=== PATIENT | male | born 1930 | race Caucasian/White ===

== ENCOUNTER 2017-08-16 09:53 | Emergency (ER) | payer MEDICARE ==
[~2017-08-16] VITALS: Ht 182.9 cm; Wt 86.2 kg
[2017-08-16 09:58] VITALS: BP_SYST 107
[2017-08-16] MEDS ORDERED: MORPHINE 4 MG/ML INJ. SYRINGE IVP ONE ×2 (10:00→17:00)
[2017-08-16] MEDS ORDERED: NACL 0.9% 1,000 ML IV ONE ×2 (10:15→13:45)
[2017-08-16 10:24] LABS: BASOPHILS % (AUTO) 0.3 % (0.0-2.0); HEMATOCRIT 23.5 % (36-54); HEMOGLOBIN 7.9 g/dL (14.0-18.0); LYMPHOCYTES # (AUTO) 0.9 K/uL (1.0-5.5); LYMPHOCYTES % (AUTO) 7.6 % (20.5-51.5); MEAN CORPUSCULAR HEMOGLOBIN 31 pg (27-31); MEAN CORPUSCULAR HGB CONC 33 % (32-36); MEAN CORPUSCULAR VOLUME 91 fL (79.0-98.0); MONOCYTES # (AUTO) 0.9 K/uL (0.0-1.0); MONOCYTES % (AUTO) 7.3 % (1.7-9.3); NEUTROPHILS # (AUTO) 10.5 K/uL (1.8-7.7); PLATELET COUNT (AUTO) 274 K/uL (130-430); RED BLOOD CELL COUNT(AUTO) 2.58 MIL/uL (4.2-6.2); RED CELL DISTRIBUTION WIDTH 16.5 % (9.0-15.0); WHITE BLOOD COUNT (AUTO) 12.3 K/uL (4.8-10.8)
[2017-08-16 10:27] LABS: ANION GAP 8 (5-15); CALCIUM 8.4 mg/dL (8.4-11.0); CHLORIDE 107 mmol/L (98-107); CREATININE 1.12 mg/dL (0.55-1.30); GLUCOSE 147 mg/dL (70-99); POTASSIUM 4.4 mmol/L (3.5-5.1); SODIUM SERUM 138 mmol/L (136-145); UREA NITROGEN, BLOOD 26 mg/dL (8-21)
[2017-08-16 10:31] LABS: INR 1.2 (0.80-1.20)
[2017-08-16 10:32] LABS: ALANINE AMINOTRANSFERASE 27 U/L (12-78); ALBUMIN 2.8 g/dL (3.4-4.8); ASPARTATE AMINOTRANSFERASE 38 U/L (10-37); TOTAL BILIRUBIN 2.4 mg/dL (0.0-1.0)
[2017-08-16 10:47] LABS: NEUTROPHILS % (AUTO) 84.8 % (40.0-70.0)
[2017-08-16 10:54] LABS: BILIRUBIN,URINE 1+ (NEGATIVE); BLOOD, URINE NEGATIVE (NEGATIVE); CLARITY/URINE CLEAR (CLEAR); COLOR,URINE AMBER (YELLOW); GLUCOSE,URINE NEGATIVE (NEGATIVE); KETONES,URINE NEGATIVE (NEGATIVE); LEUKOCYTE ESTERASE ,URINE TRACE (NEGATIVE); NITRITE, URINE NEGATIVE (NEGATIVE); PH,URINE 5.5 (5.0-8.0); PROTEIN URINE TRACE (NEGATIVE)
[2017-08-16] MEDS ORDERED: DILTIAZEM HCL 25 MG/5 ML VIAL IVP ONE (11:00)
[2017-08-16 11:12] LABS: BACTERIA,URINE FEW /HPF (None Seen); MUCUS,URINE 1+ /LPF (None Seen); RBC,URINE 0-3 /HPF (0-3)
[2017-08-16] MEDS ORDERED: cefTRIAXone 1 GM IVPB PREMIX 50 ML IV ONE (11:45)
[2017-08-16] MEDS ORDERED: DILTIAZEM HCL 125 MG in D5W 100 ML IV ONE (13:00)
[2017-08-16] MEDS ORDERED: DILTIAZEM HCL 125 MG/25 ML VIAL IV ONE (13:42)
[2017-08-16] MEDS ORDERED: MORPHINE 4 MG/ML INJ. SYRINGE ONE (16:57)
[2017-08-16 17:04] VITALS: BP_SYST 126
== END 2017-08-16 09:57 | disposition short-term general hospital (02) ==
LOC: SED 09:53
DX: I48.91 Unspecified atrial fibrillation (principal); D64.9 Anemia, unspecified; N39.0 Urinary tract infection, site not specified; F03.90 Unspecified dementia, unspecified severity, without behavioral disturbance, psychotic disturbance, mood disturbance, and anxiety
CPT/HCPCS: 36415; 71045; 80053; 81000; 82272; 82550; 83605; 83880; 84484; 85025; 85610; 85730; 86886; 86900; 86901; 86920; 87040; 87086; 93005; 96361; 96365; 96366; 96367; 96375; 96376; 99285; J0696; J2270; J3490 ×2; J7030; P9021; J7060

== ENCOUNTER 2020-05-23 12:27 | Emergency (ER) | payer MEDICARE, SELFPAY ==
[~2020-05-23] VITALS: Ht 170.2 cm; Wt 77.1 kg
[~2020-05-23 12:27] MED LIST: ACET167L15 PO; ACET325T53 PO; DILT120C89 PO; DONE10TA44 PO; FURO-149 PO; GUAI-689 PO; LACT10PA5 PO; LEVO500T89 PO; LISI10TA5 PO; LORA-258 PO; MELA10TA PO; MICO15CR4 TP; OXYC-128 PO; POLY17PO4 PO; POTA10TA PO; QUET50TA PO; SENN8.6T19 PO; SER25 PO; TAMS-11 PO; [UNRECOGNIZED DRUG - CODE]
[2020-05-23 12:31] VITALS: BP_SYST 111
[2020-05-23] MEDS ORDERED: NACL 0.9% 1,000 ML IV ONE (13:00)
[2020-05-23 13:09] LABS: BASOPHILS # (AUTO) 0.1 K/uL (0.0-0.2); BASOPHILS % (AUTO) 1.3 % (0.0-2.0); EOSINOPHILS # (AUTO) 0.1 K/uL (0.0-0.4); EOSINOPHILS % (AUTO) 0.9 % (0.0-4.0); HEMATOCRIT 22.9 % (36-54); HEMOGLOBIN 8.1 g/dL (14.0-18.0); LYMPHOCYTES # (AUTO) 1.4 K/uL (1.0-5.5); MEAN CORPUSCULAR HEMOGLOBIN 32 pg (27-31); MEAN CORPUSCULAR HGB CONC 35 % (32-36); MEAN CORPUSCULAR VOLUME 90 fL (79.0-98.0); MONOCYTES # (AUTO) 0.6 K/uL (0.0-1.0); MONOCYTES % (AUTO) 8.9 % (1.7-9.3); NEUTROPHILS # (AUTO) 4.6 K/uL (1.8-7.7); NEUTROPHILS % (AUTO) 67.9 % (40.0-70.0); PLATELET COUNT (AUTO) 141 K/uL (130-430); RED BLOOD CELL COUNT(AUTO) 2.54 MIL/uL (4.2-6.2); WHITE BLOOD COUNT (AUTO) 6.8 K/uL (4.8-10.8)
[2020-05-23 13:28] LABS: INR 1.1 (0.80-1.20); PROTHROMBIN TIME 11.7 SECS (9.5-12.5)
[2020-05-23 13:38] LABS: ALANINE AMINOTRANSFERASE 28 U/L (12-78); ALBUMIN 2.3 g/dL (3.4-4.8); ANION GAP 10 (5-15); ASPARTATE AMINOTRANSFERASE 50 U/L (10-37); CALCIUM 7.3 mg/dL (8.4-11.0); CHLORIDE 107 mmol/L (98-107); CREATININE 1.65 mg/dL (0.55-1.30); GLUCOSE 96 mg/dL (70-99); POTASSIUM 3.4 mmol/L (3.5-5.1); SODIUM SERUM 139 mmol/L (136-145); TOTAL BILIRUBIN 0.7 mg/dL (0.0-1.0); UREA NITROGEN, BLOOD 30 mg/dL (8-21)
[2020-05-23 15:50] LABS: BILIRUBIN,URINE 1+ (NEGATIVE); BLOOD, URINE 3+ (NEGATIVE); CLARITY/URINE CLOUDY (CLEAR); GLUCOSE,URINE NEGATIVE (NEGATIVE); KETONES,URINE NEGATIVE (NEGATIVE); LEUKOCYTE ESTERASE ,URINE TRACE (NEGATIVE); NITRITE, URINE NEGATIVE (NEGATIVE); PH,URINE 5.5 (5.0-8.0); PROTEIN URINE 2+ (NEGATIVE); UROBILINOGEN,URINE 0.2 (0.2-1.0)
[2020-05-23 15:59] VITALS: BP_SYST 124
[2020-05-23 16:00] LABS: COLOR,URINE AMBER (YELLOW)
[2020-05-23 16:06] LABS: BACTERIA,URINE MODERATE /HPF (None Seen); RBC,URINE >100 /HPF (0-3); WBC,URINE 50-80 /HPF (0-3)
[2020-05-23 16:07] LABS: MUCUS,URINE None Seen /LPF (None Seen); URINE AMORPHOUS URATE 2+ /HPF (None Seen)
== END 2020-05-23 16:55 | disposition home or self-care (01) ==
LOC: SED 12:27
DX: R31.9 Hematuria, unspecified (principal); I48.91 Unspecified atrial fibrillation; Z79.899 Other long term (current) drug therapy
CPT/HCPCS: 36415; 71045; 80053; 81000; 83605; 84484; 85025; 85610; 85730; 87040; 87086; 93005; 96360; 99285; J7030

== ENCOUNTER 2021-06-02 01:50 | Inpatient (IN) | payer MEDICARE, SELFPAY ==
[2021-06-02] VITALS (26 sets, daily range): BP systolic 83–128
[~2021-06-02] VITALS: Ht 170.2 cm; Wt 77.1 kg
[~2021-06-02 01:50] MED LIST changes: -LEVO500T89 PO; +LEVO500T90 PO; +LISI10TA29 PO; -LISI10TA5 PO; +MICO14CR6 TP; -MICO15CR4 TP
[2021-06-02 02:45] LABS: BASOPHILS % (AUTO) 0.3 % (0.0-2.0); EOSINOPHILS # (AUTO) 0.1 K/uL (0.0-0.4); EOSINOPHILS % (AUTO) 0.4 % (0.0-4.0); HEMATOCRIT 41.7 % (36-54); HEMOGLOBIN 13.5 g/dL (14.0-18.0); LYMPHOCYTES # (AUTO) 1.6 K/uL (1.0-5.5); LYMPHOCYTES % (AUTO) 11.9 % (20.5-51.5); MEAN CORPUSCULAR HEMOGLOBIN 28 pg (27-31); MEAN CORPUSCULAR HGB CONC 32 % (32-36); MEAN CORPUSCULAR VOLUME 87 fL (79.0-98.0); MONOCYTES # (AUTO) 0.7 K/uL (0.0-1.0); MONOCYTES % (AUTO) 5.3 % (1.7-9.3); NEUTROPHILS # (AUTO) 11.3 K/uL (1.8-7.7); NEUTROPHILS % (AUTO) 82.1 % (40.0-70.0); PLATELET COUNT (AUTO) 164 K/uL (130-430); RED BLOOD CELL COUNT(AUTO) 4.81 MIL/uL (4.2-6.2); RED CELL DISTRIBUTION WIDTH 22.3 % (9.0-15.0); WHITE BLOOD COUNT (AUTO) 13.8 K/uL (4.8-10.8)
[2021-06-02 02:46] LABS: ANION GAP 17 (5-15); CALCIUM 8.8 mg/dL (8.4-11.0); CREATININE 5.79 mg/dL (0.55-1.30); GLUCOSE 139 mg/dL (70-99); SODIUM SERUM 154 mmol/L (136-145)
[2021-06-02 02:52] LABS: ALANINE AMINOTRANSFERASE 39 U/L (12-78); ASPARTATE AMINOTRANSFERASE 57 U/L (10-37); TOTAL BILIRUBIN 0.9 mg/dL (0.0-1.0)
[2021-06-02 02:55] LABS: POTASSIUM 5.8 mmol/L (3.5-5.1); UREA NITROGEN, BLOOD 158 mg/dL (8-21)
[2021-06-02 02:56] LABS: CHLORIDE 121 mmol/L (98-107)
[2021-06-02 03:44] LABS: BILIRUBIN,URINE NEGATIVE (NEGATIVE); BLOOD, URINE 3+ (NEGATIVE); CLARITY/URINE SL CLOUDY (CLEAR); COLOR,URINE RED (YELLOW); GLUCOSE,URINE TRACE (NEGATIVE); KETONES,URINE NEGATIVE (NEGATIVE); LEUKOCYTE ESTERASE ,URINE 2+ (NEGATIVE); NITRITE, URINE NEGATIVE (NEGATIVE); PROTEIN URINE 1+ (NEGATIVE); UROBILINOGEN,URINE 0.2 (0.2-1.0)
[2021-06-02] MEDS ORDERED: PIPERACILLIN/TAZO 3.375 GM in NS 50 ML IV ONE (03:45)
[2021-06-02] MEDS ORDERED: VANCOMYCIN HCL 1,000 MG in NS 250 ML IV ONE (03:45)
[2021-06-02] MEDS ORDERED: NOREPINEPHRINE BITARTRATE 4 MG in NS 246 ML IV ONE (03:45)
[2021-06-02] MEDS ORDERED: VANCOMYCIN HCL 1000 MG/VIAL IV ONE (03:47)
[2021-06-02] MEDS ORDERED: PIPERACILLIN/TAZOBACTAM 3.375 GM/VIAL (ZOSYN) IV ONE (03:50)
[2021-06-02] MEDS ORDERED: NOREPINEPHRINE 4 MG/4 ML VIAL IV ONE (03:51)
[2021-06-02 04:00] LABS: BACTERIA,URINE MODERATE /HPF (None Seen); FINE GRANULAR CASTS,URINE 0-10 /LPF (None Seen); RBC,URINE >100 /HPF (0-3); WBC,URINE 20-50 /HPF (0-3)
[2021-06-02 04:01] LABS: MUCUS,URINE None Seen /LPF (None Seen)
[2021-06-02] MEDS ORDERED: NACL 0.9% 1,000 ML IV ONE (05:30)
[2021-06-02] MEDS ORDERED: DONE10TA44 PO (06:11)
[2021-06-02] MEDS ORDERED: TRAM50TA PO (06:13)
[2021-06-02] MEDS ORDERED: PANTOPRAZOLE SODIUM 80 MG in NS 100 ML IVP ONE (08:00)
[2021-06-02] MEDS ORDERED: ACETAMINOPHEN 650 MG SUPP.RECT RC PRN (08:15)
[2021-06-02] MEDS ORDERED: 0.45% NS 500 ML IV ONE (09:00)
[2021-06-02] MEDS: PANTOPRAZOLE SODIUM 40 MG in NS 50 ML IV SCH ×4 (09:17→22:16)
[2021-06-02 09:31] LABS: BASOPHILS # (AUTO) 0.1 K/uL (0.0-0.2); BASOPHILS % (AUTO) 0.5 % (0.0-2.0); EOSINOPHILS # (AUTO) 0.1 K/uL (0.0-0.4); EOSINOPHILS % (AUTO) 0.5 % (0.0-4.0); HEMATOCRIT 40.6 % (36-54); HEMOGLOBIN 13.1 g/dL (14.0-18.0); LYMPHOCYTES # (AUTO) 1.7 K/uL (1.0-5.5); LYMPHOCYTES % (AUTO) 11.8 % (20.5-51.5); MEAN CORPUSCULAR HEMOGLOBIN 28 pg (27-31); MEAN CORPUSCULAR HGB CONC 32 % (32-36); MEAN CORPUSCULAR VOLUME 87 fL (79.0-98.0); MONOCYTES # (AUTO) 0.9 K/uL (0.0-1.0); MONOCYTES % (AUTO) 6.4 % (1.7-9.3); NEUTROPHILS # (AUTO) 11.7 K/uL (1.8-7.7); NEUTROPHILS % (AUTO) 80.8 % (40.0-70.0); PLATELET COUNT (AUTO) 152 K/uL (130-430); RED BLOOD CELL COUNT(AUTO) 4.67 MIL/uL (4.2-6.2); RED CELL DISTRIBUTION WIDTH 22.2 % (9.0-15.0); WHITE BLOOD COUNT (AUTO) 14.5 K/uL (4.8-10.8)
[2021-06-02 09:43] LABS: ANION GAP 17 (5-15); CALCIUM 8.7 mg/dL (8.4-11.0); GLUCOSE 119 mg/dL (70-99); POTASSIUM 4.7 mmol/L (3.5-5.1); SODIUM SERUM 157 mmol/L (136-145)
[2021-06-02] MEDS: PIPERACILLIN/TAZO 2.25G/DEX-IS 50 ML IV SCH ×2 (09:48→18:12)
[2021-06-02 10:30] LABS: CHLORIDE 123 mmol/L (98-107); UREA NITROGEN, BLOOD 140 mg/dL (8-21)
[2021-06-02 10:36] LABS: INR 1.2 (0.80-1.20); PROTHROMBIN TIME 12.1 SECS (9.5-12.5)
[2021-06-02] MEDS ORDERED: DEXAMETHASONE SOD PHOSPHATE 10 MG/ML VIAL IVP ONE (10:45)
[2021-06-02 13:00] LABS: ANION GAP 11 (5-15); CALCIUM 8.7 mg/dL (8.4-11.0); GLUCOSE 122 mg/dL (70-99); POTASSIUM 4.6 mmol/L (3.5-5.1); SODIUM SERUM 153 mmol/L (136-145)
[2021-06-02 13:13] LABS: CHLORIDE 124 mmol/L (98-107); UREA NITROGEN, BLOOD 139 mg/dL (8-21)
[2021-06-03] VITALS (35 sets, daily range): BP systolic 86–124
[2021-06-03] MEDS: PIPERACILLIN/TAZO 2.25G/DEX-IS 50 ML IV SCH ×3 (00:11→17:04)
[2021-06-03] MEDS: NOREPINEPHRINE BITARTRATE 4 MG in NS 246 ML IV PRN ×2 (00:26→09:59)
[2021-06-03] MEDS: PANTOPRAZOLE SODIUM 40 MG in NS 50 ML IV SCH (04:05)
[2021-06-03 04:53] LABS: BASOPHILS % (AUTO) 0.2 % (0.0-2.0); EOSINOPHILS % (AUTO) 0.1 % (0.0-4.0); HEMATOCRIT 41.6 % (36-54); HEMOGLOBIN 13.4 g/dL (14.0-18.0); LYMPHOCYTES # (AUTO) 1.1 K/uL (1.0-5.5); LYMPHOCYTES % (AUTO) 8.5 % (20.5-51.5); MEAN CORPUSCULAR HEMOGLOBIN 28 pg (27-31); MEAN CORPUSCULAR HGB CONC 32 % (32-36); MEAN CORPUSCULAR VOLUME 86 fL (79.0-98.0); MONOCYTES # (AUTO) 0.5 K/uL (0.0-1.0); NEUTROPHILS # (AUTO) 11.4 K/uL (1.8-7.7); NEUTROPHILS % (AUTO) 87.2 % (40.0-70.0); PLATELET COUNT (AUTO) 159 K/uL (130-430); RED BLOOD CELL COUNT(AUTO) 4.82 MIL/uL (4.2-6.2); RED CELL DISTRIBUTION WIDTH 21.8 % (9.0-15.0); WHITE BLOOD COUNT (AUTO) 13.1 K/uL (4.8-10.8)
[2021-06-03 05:31] LABS: ALANINE AMINOTRANSFERASE 35 U/L (12-78); ALBUMIN 2.8 g/dL (3.4-4.8); ANION GAP 13 (5-15); ASPARTATE AMINOTRANSFERASE 53 U/L (10-37); GLUCOSE 147 mg/dL (70-99); POTASSIUM 4.8 mmol/L (3.5-5.1); SODIUM SERUM 159 mmol/L (136-145); TOTAL BILIRUBIN 0.9 mg/dL (0.0-1.0)
[2021-06-03 05:35] LABS: CHLORIDE 129 mmol/L (98-107); UREA NITROGEN, BLOOD 109 mg/dL (8-21)
[2021-06-03 05:47] LABS: CHOLESTEROL 124 mg/dL (<200); HDL CHOLESTEROL 39 mg/dL (>45); LDL CHOLESTEROL 78 mg/dL (<100); TRIGLYCERIDES 68 mg/dL (30-150)
[2021-06-03 07:41] LABS: INR 1.1 (0.80-1.20); PROTHROMBIN TIME 11.8 SECS (9.5-12.5)
[2021-06-03] MEDS ORDERED: PANTOPRAZOLE SODIUM 40 MG/VIAL (PROTONIX) IVP SCH (09:00)
[2021-06-03] MEDS ORDERED: DEXAMETHASONE SOD PHOSPHATE 10 MG/ML VIAL IVP SCH (09:00)
[2021-06-03] MEDS: 0.45% NACL 1,000 ML IV SCH ×2 (09:13→15:45)
[2021-06-03] MEDS ORDERED: MORPHINE 2 MG/ML INJ. SYRINGE IVP PRN (17:45)
[2021-06-03] MEDS ORDERED: NALOXONE HCL 0.4 MG/ML AMP (NARCAN) IVP PRN (17:45)
[2021-06-03] MEDS: D5W 1,000 ML IV SCH (18:00)
[2021-06-04 00:44] VITALS: BP_SYST 99
[2021-06-04] MEDS: D5W 1,000 ML IV SCH ×3 (03:50→15:55)
[2021-06-04 06:09] LABS: BASOPHILS % (AUTO) 0.2 % (0.0-2.0); EOSINOPHILS % (AUTO) 0.1 % (0.0-4.0); HEMATOCRIT 37.4 % (36-54); HEMOGLOBIN 11.9 g/dL (14.0-18.0); LYMPHOCYTES # (AUTO) 1.8 K/uL (1.0-5.5); LYMPHOCYTES % (AUTO) 14.1 % (20.5-51.5); MEAN CORPUSCULAR HEMOGLOBIN 28 pg (27-31); MEAN CORPUSCULAR HGB CONC 32 % (32-36); MEAN CORPUSCULAR VOLUME 87 fL (79.0-98.0); MONOCYTES # (AUTO) 0.7 K/uL (0.0-1.0); MONOCYTES % (AUTO) 5.2 % (1.7-9.3); NEUTROPHILS # (AUTO) 10.3 K/uL (1.8-7.7); NEUTROPHILS % (AUTO) 80.4 % (40.0-70.0); PLATELET COUNT (AUTO) 138 K/uL (130-430); RED CELL DISTRIBUTION WIDTH 22.1 % (9.0-15.0); WHITE BLOOD COUNT (AUTO) 12.9 K/uL (4.8-10.8)
[2021-06-04 06:32] LABS: ALANINE AMINOTRANSFERASE 37 U/L (12-78); ALBUMIN 2.4 g/dL (3.4-4.8); ANION GAP 12 (5-15); ASPARTATE AMINOTRANSFERASE 46 U/L (10-37); CALCIUM 8.5 mg/dL (8.4-11.0); CREATININE 2.48 mg/dL (0.55-1.30); GLUCOSE 126 mg/dL (70-99); POTASSIUM 4.8 mmol/L (3.5-5.1)
[2021-06-04 06:46] LABS: SODIUM SERUM 160 mmol/L (136-145)
[2021-06-04 06:47] LABS: CHLORIDE 129 mmol/L (98-107); UREA NITROGEN, BLOOD 105 mg/dL (8-21)
[2021-06-04 08:00] VITALS: BP_SYST 96
[2021-06-04] MEDS ORDERED: cefTRIAXone 1 GM IVPB PREMIX 50 ML IV ONE (11:00)
[2021-06-04 11:15] VITALS: BP_SYST 105
[2021-06-04 16:47] VITALS: BP_SYST 109
[2021-06-04 20:00] VITALS: BP_SYST 96
[2021-06-05] MEDS: D5W 1,000 ML IV SCH ×2 (00:12→03:30)
[2021-06-05 01:00] VITALS: BP_SYST 103
[2021-06-05 06:53] LABS: BASOPHILS % (AUTO) 0.1 % (0.0-2.0); EOSINOPHILS # (AUTO) 0.3 K/uL (0.0-0.4); EOSINOPHILS % (AUTO) 2.7 % (0.0-4.0); HEMATOCRIT 40.1 % (36-54); HEMOGLOBIN 13.2 g/dL (14.0-18.0); LYMPHOCYTES # (AUTO) 2.3 K/uL (1.0-5.5); LYMPHOCYTES % (AUTO) 17.8 % (20.5-51.5); MEAN CORPUSCULAR HEMOGLOBIN 28 pg (27-31); MEAN CORPUSCULAR HGB CONC 33 % (32-36); MEAN CORPUSCULAR VOLUME 86 fL (79.0-98.0); MONOCYTES # (AUTO) 0.7 K/uL (0.0-1.0); MONOCYTES % (AUTO) 5.1 % (1.7-9.3); NEUTROPHILS # (AUTO) 9.6 K/uL (1.8-7.7); NEUTROPHILS % (AUTO) 74.3 % (40.0-70.0); PLATELET COUNT (AUTO) 143 K/uL (130-430); RED BLOOD CELL COUNT(AUTO) 4.66 MIL/uL (4.2-6.2); RED CELL DISTRIBUTION WIDTH 21.9 % (9.0-15.0); WHITE BLOOD COUNT (AUTO) 12.9 K/uL (4.8-10.8)
[2021-06-05 07:31] LABS: ALANINE AMINOTRANSFERASE 49 U/L (12-78); ALBUMIN 2.6 g/dL (3.4-4.8); ANION GAP 13 (5-15); ASPARTATE AMINOTRANSFERASE 55 U/L (10-37); CALCIUM 8.6 mg/dL (8.4-11.0); CREATININE 2.32 mg/dL (0.55-1.30); GLUCOSE 125 mg/dL (70-99); POTASSIUM 4.5 mmol/L (3.5-5.1)
[2021-06-05 07:48] LABS: CHLORIDE 128 mmol/L (98-107); SODIUM SERUM 160 mmol/L (136-145); UREA NITROGEN, BLOOD 118 mg/dL (8-21)
[2021-06-05 08:00] VITALS: BP_SYST 87
[2021-06-05] MEDS ORDERED: cefTRIAXone 1 GM IVPB PREMIX 50 ML IV SCH (11:00)
[2021-06-05 13:03] VITALS: BP_SYST 102
[2021-06-05 14:14] VITALS: BP_SYST 81
== END 2021-06-05 16:00 | disposition hospice, inpatient (51) | DRG 871 ==
LOC: SED 01:50 → SIC 05:20 → SMU 06-03 21:58
PROVIDERS: ADMIT Internal Medicine; ATTEND Internal Medicine
DX: A41.9 Sepsis, unspecified organism (principal); J96.01 Acute respiratory failure with hypoxia; R65.21 Severe sepsis with septic shock; R57.1 Hypovolemic shock; I21.4 Non-ST elevation (NSTEMI) myocardial infarction; J18.9 Pneumonia, unspecified organism; N39.0 Urinary tract infection, site not specified; I48.20 Chronic atrial fibrillation, unspecified; N13.8 Other obstructive and reflux uropathy; K92.2 Gastrointestinal hemorrhage, unspecified; N17.9 Acute kidney failure, unspecified; E44.1 Mild protein-calorie malnutrition; F19.10 Other psychoactive substance abuse, uncomplicated; I87.8 Other specified disorders of veins; I11.0 Hypertensive heart disease with heart failure; Z20.822 Contact with and (suspected) exposure to COVID-19; I25.10 Atherosclerotic heart disease of native coronary artery without angina pectoris; I50.9 Heart failure, unspecified; F03.90 Unspecified dementia, unspecified severity, without behavioral disturbance, psychotic disturbance, mood disturbance, and anxiety; N40.1 Benign prostatic hyperplasia with lower urinary tract symptoms; E86.0 Dehydration; J84.10 Pulmonary fibrosis, unspecified; Z66 Do not resuscitate; Z79.891 Long term (current) use of opiate analgesic; Z79.1 Long term (current) use of non-steroidal anti-inflammatories (NSAID); Z79.899 Other long term (current) drug therapy; Z74.01 Bed confinement status; Z79.01 Long term (current) use of anticoagulants; Z51.5 Encounter for palliative care; Z68.26 Body mass index [BMI] 26.0-26.9, adult
CPT/HCPCS: 36415; 36600; 71045; 76770; 80048; 80053; 80061; 81000; 82803-TC; 83605; 83880; 84484; 85025; 85610-TC; 85730-TC; 86886; 86900; 86901; 87040; 87081; 87086; 92610-GN; 93005; 96374; 96375; 99291; C9113; J0696; J1100; J2543; J3370; J7050; U0003